=== PATIENT | female | born 1955 | race Caucasian/White ===

== ENCOUNTER 2019-08-09 05:59 | Inpatient (IN) ==
[2019-08-02 09:34] LABS: URINE SOURCE CLEAN CATCH
[2019-08-02 09:39] LABS: BILIRUBIN URINE NEGATIVE (NEGATIVE); BLOOD URINE NEGATIVE (NEGATIVE); COLOR YELLOW; GLUCOSE URINE NEGATIVE (NEGATIVE); KETONE URINE NEGATIVE (NEGATIVE); LEUKOCYTES URINE NEGATIVE (NEGATIVE); NITRITE URINE NEGATIVE (NEGATIVE); PROTEIN URINE NEGATIVE (NEGATIVE); SP GRAVITY URINE 1.009; TURBIDITY URINE CLEAR (CLEAR); UROBILINOGEN URINE NORMAL (NORMAL)
[2019-08-02 09:40] LABS: UR EPITHELIAL CELLS <10 /HPF (<10); URINE BACTERIA NEGATIVE /HPF; URINE RBC <10 /HPF (<10); URINE WBC <10 /HPF (<10)
[2019-08-02 09:42] LABS: BASO# 0.04 X1000 (0.0-0.2); BASO% 0.8 % (0.0-0.8); EOS% 5.8 % (0.0-10.0); HEMATOCRIT 44.1 % (37.0-47.0); HEMOGLOBIN 14.8 g/dL (12.0-16.0); LYMPH# 1.69 X1000 (1.2-3.4); LYMPH% 32.6 % (20.5-51.1); MCH 30.9 PG (27-31); MCHC 33.6 g/dL (33-37); MCV 92.1 FL (81-99); MONO# 0.59 X1000 (0.11-0.59); MONO% 11.4 % (1.7-9.3); MPV 9.5 FL (7.4-10.4); NEUT# 2.57 X1000 (1.4-6.5); NEUT% 49.4 % (42.2-75.2); PLT 204 X1000 (130-400); RBC 4.79 XMIL (4.2-5.4); WBC 5.19 X1000 (4.8-10.8)
[2019-08-02 09:44] LABS: INR 0.92; PROTIME 12.4 Seconds (11.0-16.0)
[2019-08-02 09:45] LABS: PTT 33.6 Seconds (22.3-41.8)
--- NOTE | 2019-08-02 09:51 | EKG Report ---
Test Performed on : 08/02/2019 09:16:11 AM Test Reason : PAT Blood Pressure : / mmHG Vent. Rate : 061 BPM Atrial Rate : 061 BPM P-R Int : 166 ms QRS Dur : 080 ms QT Int : 418 ms P-R-T Axes : 046 008 068 degrees QTc Int : 420 ms Normal sinus rhythm. with sinus arrhythmia. Normal ECG When compared with ECG of 14-MAR-2015 13:17, No significant change was found Confirmed by Ivan BUSTILLO, Jaciel Scott ([id number]) on 08/04/2019 7:28:54 AM
[2019-08-02 10:04] LABS: AGAP 13; ALBUMIN 4.6 g/dL (3.5-5.0); BUN 12 mg/dL (8-22); CALCIUM 9.7 mg/dL (8.8-10.2); CHLORIDE 97 mmol/L (98-107); COSMO 270; CREATININE 0.7 mg/dL (0.5-0.9); ESTIMATED GFR > 60; GLUCOSE 99 mg/dL (70-104); POTASSIUM 4.2 mmol/L (3.5-5.1); SODIUM 135 mmol/L (136-145); TCO2 25 mmol/L (25-35)
[2019-08-02 13:11] LABS: HEMOGLOBIN A1C 5.2 % (4.8-6.0)
[2019-08-09] MEDS ORDERED: REGLAN ONE (06:21)
[2019-08-09] MEDS ORDERED: COLACE ONE (06:21)
[2019-08-09] MEDS ORDERED: PEPCID ONE (06:21)
[2019-08-09] MEDS ORDERED: LYRICA ONE (06:22)
[2019-08-09] MEDS ORDERED: KEFZOL 1 GM/D5W 1 GM/50 ML IVPB ONE (06:22)
[2019-08-09] MEDS ORDERED: CELEBREX ONE (06:22)
[2019-08-09] MEDS ORDERED: LR 1,000 ML ONE (06:22)
[2019-08-09] MEDS ORDERED: FENTANYL ONE ×2 (06:37→08:27)
[2019-08-09] MEDS ORDERED: DIPRIVAN 1% ONE (06:37)
[2019-08-09] MEDS ORDERED: XYLOCAINE-MPF 2% ONE (06:39)
[2019-08-09] MEDS ORDERED: SODIUM CHLORIDE 0.9% ONE (06:51)
[2019-08-09] MEDS ORDERED: MARCAINE 0.25% PF ONE (06:51)
[2019-08-09] MEDS ORDERED: CYKLOKAPRON 1,000 MG/NS 1,000 MG/100 ML IVPB ONE (06:51)
[2019-08-09] MEDS ORDERED: TORADOL ONE (06:51)
[2019-08-09] MEDS ORDERED: DURAMORPH ONE (06:51)
[2019-08-09] MEDS ORDERED: NEOSPORIN G.U. IRRIGANT ONE (06:52)
[2019-08-09] MEDS ORDERED: EXPAREL 1.3% ONE (06:52)
[2019-08-09] MEDS ORDERED: DECADRON ONE (08:01)
[2019-08-09] MEDS ORDERED: ZOFRAN ONE (08:03)
[2019-08-09] MEDS ORDERED: QUELICIN (DOSE) ONE (08:04)
[2019-08-09 09:01] LABS: URINE SOURCE CATH
[2019-08-09] MEDS ORDERED: OFIRMEV 1000 MG/ISOTONIC SOLN 1,000 MG/100 ML BOTTLE ONE (09:03)
[2019-08-09 09:05] LABS: BILIRUBIN URINE NEGATIVE (NEGATIVE); BLOOD URINE NEGATIVE (NEGATIVE); COLOR STRAW; GLUCOSE URINE NEGATIVE (NEGATIVE); KETONE URINE NEGATIVE (NEGATIVE); LEUKOCYTES URINE NEGATIVE (NEGATIVE); NITRITE URINE NEGATIVE (NEGATIVE); PH URINE 6.5; PROTEIN URINE NEGATIVE (NEGATIVE); SP GRAVITY URINE 1.012; TURBIDITY URINE CLEAR (CLEAR); UROBILINOGEN URINE NORMAL (NORMAL)
[2019-08-09 09:06] LABS: UR EPITHELIAL CELLS <10 /HPF (<10); URINE BACTERIA NEGATIVE /HPF; URINE RBC <10 /HPF (<10); URINE WBC <10 /HPF (<10)
--- NOTE | 2019-08-09 09:37 | OPERATIVE NOTE ---
PROCEDURE DATE: 08/09/2019 PREOPERATIVE DIAGNOSIS: Degenerative joint disease, right hip. POSTOPERATIVE DIAGNOSIS: Degenerative joint disease, right hip. PROCEDURE PERFORMED: Right total hip replacement. SURGEON: Timur Alonzo MD. ELEVATOR OPERATOR SERVICE: BASIM Kevin. Mr. Sanchez was necessary for proper retraction and manipulation during the case. ANESTHESIA: Spinal. COMPLICATION: None. PROCEDURE IN DETAIL: This 63-year-old female presents for right total hip. Risks, benefits, and no guarantees were discussed and she is willing to proceed. She was taken to the operating room and satisfactory anesthesia obtained. She was placed on the [place] table with the right hip prepped and draped in usual sterile fashion. A time-out was taken to confirm operative site, procedure, and patient. An anterior approach to the right hip was undertaken with an incision starting 1 cm distal and lateral to the anterior superior iliac spine. Dissection was carried down through the skin and subcutaneous fat to the fascia of the tensor fascia charles. This was incised and blunt dissection along the inner membrane of the tensor undertaken down to the anterior hip capsule. Cobra retractors were placed over the superior and inferior aspects of the femoral neck and a capsulotomy incision made to expose the joint. At this point, the C-arm was used to establish an AP pelvis for leg length determination. A femoral neck osteotomy was made and the femoral head removed. A small Cobra retractor was carefully placed directly on anterior acetabular bone to protect the anterior neurovascular bundle during reaming. Reaming was undertaken up to a 51 reamer. A DePuy Bellamy DuoFix HODGSON coated 52 outer diameter cup was impacted under fluoroscopic guidance into the acetabulum in roughly 45 degrees of abduction and 10-15 degrees of anteversion. Secure press-fit fixation was achieved. A 25 length screw was placed in the 12 o'clock position of the cup. A 36 mm inner diameter 0-degree polyethylene bearing was then impacted into the cup. The bearing cup interface and cup bone interface was checked and noted to be stable. Traction was released off the leg and the hip extended and externally rotated using the [place] table to facilitate broaching of the proximal femur. Sequential broaching was undertaken up to a size 3 DePuy Actis stem. This had good axial and rotational stability. Standard neck with a +5 neck length head ball was trialed with voodoo of leg length and good stability. The trial implant was removed and a standard neck size 3 collared active stem impacted in the proximal femur and secure axial and rotational stability. A 36 mm +5 neck length head ball was impacted onto the Flores taper and the hip reduced. The hip was flexed and internally rotated with no posterior instability. The hip was extended and externally rotated with no anterior instability by dropping the leg to the floor in roughly 60 degrees of external rotation. The wound was copiously irrigated. The C-arm was used to verify correction of leg length as well as implant geometry and placement. The joint capsule and subcutaneous was injected with Exparel for pain management. A Hemovac drain was placed. After thorough irrigation with irrigant the fascia of the tensor was closed with a running V-Loc suture, the subcutaneous with 2-0 Vicryl, and the skin with perennial closure. Sterile dressings were applied and the patient was recovered from anesthesia and transferred to the recovery room in stable condition. No intraoperative complications were noted. Instrument count and sponge count was correct at the time of closure. cc: Latrell Alonzo MD
[2019-08-09] MEDS ORDERED: NS 1,000 ML ONE (09:44)
[2019-08-09] MEDS ORDERED: MORPHINE IV PRN ×3 (10:00)
[2019-08-09] MEDS ORDERED: ZOFRAN ODT PO PRN (10:00)
[2019-08-09] MEDS ORDERED: ZOFRAN IV PRN (10:00)
[2019-08-09] MEDS ORDERED: OXY IR PO PRN ×2 (10:00)
[2019-08-09] MEDS: DILAUDID ONE ×2 (10:09→10:15)
[2019-08-09] MEDS: OXY IR ONE (10:25)
[2019-08-09] MEDS ORDERED: CYKLOKAPRON 1,000 MG in NS 100 ML IV ONE (14:00)
[2019-08-09] MEDS: ULTRAM PO SCH ×2 (14:44→21:44)
[2019-08-09] MEDS: TYLENOL PO SCH ×2 (14:44→21:45)
--- NOTE | 2019-08-09 14:58 | ORTHOPAEDICS PROGRESS NOTE ---
DATE: 08/09/2019 Ms. Hinojosa is seen status post right anterior hip replacement. She is afebrile with stable vital signs. Her bandage is clean and dry. She appears to be motor and sensory intact in both femoral and sciatic nerves. She is comfortable at the present time. We will plan on mobilizing her and discontinuing the drains. She can be discharged home when she is mobilizing with a walker and stable. cc: Latrell Alonzo MD
[2019-08-09] MEDS: NS 1,000 ML IV SCH ×2 (15:09→21:46)
[2019-08-09] MEDS: KEFZOL 1 GM/D5W 1 GM/50 ML IVPB IV SCH (15:09)
[2019-08-09] MEDS ORDERED: COZAAR PO SCH (21:00)
[2019-08-09] MEDS ORDERED: ZYRTEC PO SCH (21:00)
[2019-08-09] MEDS: CELEBREX PO SCH (21:44)
[2019-08-09] MEDS: COLACE PO SCH (21:45)
[2019-08-09] MEDS: PERIDEX MT SCH (21:46)
[2019-08-09] MEDS: ASTELIN NASAL SPRAY NAS SCH (21:47)
[2019-08-09] MEDS: PATIENT'S OWN MED PO SCH (21:48)
[2019-08-09] MEDS: FLONASE NAS SCH (21:52)
[2019-08-10] MEDS: KEFZOL 1 GM/D5W 1 GM/50 ML IVPB IV SCH (00:55)
[2019-08-10] MEDS: ASTELIN NASAL SPRAY NAS SCH ×2 (01:53→10:17)
[2019-08-10] MEDS: ULTRAM PO SCH ×2 (06:11→12:13)
[2019-08-10] MEDS: TYLENOL PO SCH ×2 (06:11→12:13)
[2019-08-10] MEDS: NS 1,000 ML IV SCH (06:58)
[2019-08-10] MEDS ORDERED: PROTONIX PO SCH (07:00)
[2019-08-10 07:28] LABS: AGAP 16; BUN 11 mg/dL (8-22); CALCIUM 8.6 mg/dL (8.8-10.2); CHLORIDE 100 mmol/L (98-107); COSMO 269; CREATININE 0.7 mg/dL (0.5-0.9); ESTIMATED GFR > 60; GLUCOSE 122 mg/dL (70-104); POTASSIUM 4.7 mmol/L (3.5-5.1); SODIUM 134 mmol/L (136-145); TCO2 18 mmol/L (25-35)
[2019-08-10 07:29] LABS: HEMATOCRIT 34.5 % (37.0-47.0); HEMOGLOBIN 11.4 g/dL (12.0-16.0)
--- NOTE | 2019-08-10 08:00 | ORTHOPAEDICS PROGRESS NOTE ---
DATE: 08/10/2019 SUBJECTIVE DATA: Ms. Hinojosa is seen postoperative day 1 of her right total hip arthroplasty. She reports she is in no pain at this time. She denies nausea or vomiting. She reports she walked from nursing station yesterday with physical therapy without difficulty. She reports she is ready to go home with home therapy. OBJECTIVE DATA: There is good sensation to the right lower extremity. There are good pedal pulses. Her bandages are clean and dry. Her vital signs are stable. LABORATORY DATA: Within normal limits. ASSESSMENT: Degenerative joint disease of the right hip with right total hip arthroplasty. PLAN: We plan to send Ms. Hinojosa home today. She will be sent home with Bactrim DS twice daily for 10 days, Celebrex 200 mg daily for pain inflammation. We will also place her on [place] 10 for pain, as well as Phenergan for nausea prevention and aspirin 325 mg daily for DVT prophylaxis. She is to follow up with Dr. Alonzo in roughly 10 days for staple removal. We will then begin outpatient therapy at that time. Dictated by BASIM Kevin for Latrell Alonzo MD cc: BASIM Kevin MD
[2019-08-10] MEDS ORDERED: VITAMIN D PO SCH (09:00)
[2019-08-10] MEDS ORDERED: PEPCID PO SCH (09:00)
[2019-08-10] MEDS ORDERED: SINGULAIR PO SCH (09:00)
[2019-08-10] MEDS ORDERED: PATIENT'S OWN MED TOP SCH (09:00)
[2019-08-10] MEDS ORDERED: VICON-C PO SCH (09:00)
[2019-08-10] MEDS ORDERED: HYDROCHLOROTHIAZIDE PO SCH (09:00)
[2019-08-10] MEDS ORDERED: PATIENT'S OWN MED PO SCH (09:00)
[2019-08-10] MEDS ORDERED: ASPIRIN PO SCH (09:00)
[2019-08-10] MEDS: OXY IR ONE (10:09)
[2019-08-10] MEDS: COLACE PO SCH (10:09)
[2019-08-10] MEDS: CELEBREX PO SCH (10:10)
[2019-08-10] MEDS: PERIDEX MT SCH (10:12)
[2019-08-10] MEDS: PATIENT'S OWN MED PO SCH (10:16)
[2019-08-10] MEDS: FLONASE NAS SCH (10:17)
[2019-08-10 12:01] VITALS: BP 157/76
== END 2019-08-10 12:41 | disposition home health service (06) | DRG 470 ==
LOC: SURHOLD 05:59 → 4N 08:40
PROVIDERS: ADMIT Orthopaedic Surgery Adult Reconstructive Orthopaedic Surgery; ATTEND Orthopaedic Surgery Adult Reconstructive Orthopaedic Surgery